=== PATIENT | female | born 1965 | race Caucasian/White ===

== ENCOUNTER 2020-06-18 08:24 | Outpatient (REF) | payer OTHER, SELFPAY ==
[2020-06-18 08:48] LABS: COVID-19 Test Negative (Negative)
== END 2020-06-18 08:25 | disposition home or self-care (01) ==
LOC: HO.EMPCOV 08:24
PROVIDERS: Visit Provider Internal Medicine
DX: Z20.828 Contact with and (suspected) exposure to other viral communicable diseases (principal)
CPT/HCPCS: 87635; C9803

== ENCOUNTER 2021-07-24 11:10 | Outpatient (REF) | payer SELFPAY ==
[2021-07-24 12:53] LABS: Influenza A PCR NEGATIVE (Negative); Influenza B PCR NEGATIVE (Negative); Resp Syncy Virus RNA Qual PCR NEGATIVE (Negative); SARS COV2 PCR INHOUSE NEGATIVE (Negative)
== END 2021-07-24 11:11 | disposition home or self-care (01) ==
LOC: HO.LNP 11:10
PROVIDERS: Visit Provider Physician Assistant
DX: Z20.822 Contact with and (suspected) exposure to COVID-19 (principal)
CPT/HCPCS: 0241U

== ENCOUNTER → 2023-01-12 14:59 | Outpatient (BNVA) | payer OTHER, SELFPAY | PROVIDERS: Visit Provider Orthopaedic Surgery | DX: M23.91 Unspecified internal derangement of right knee (principal) | CPT/HCPCS: 99212 ==

== ENCOUNTER 2023-01-31 09:00 | Outpatient (REF) | payer OTHER, SELFPAY ==
--- NOTE | ~2023-01-31 | MR_ITS ---
EXAMINATION: MR KNEE WITHOUT CONTRAST, RIGHT CLINICAL INFORMATION: Right knee pain. COMPARISON: None available. TECHNIQUE: MRI of the knee without contrast was performed using routine sequences on a high-field scanner. FINDINGS: MENISCI: Medial Meniscus: Intact Lateral Meniscus: Small ill-defined inner margin tear of the meniscal body. LIGAMENTS: Cruciate: Intact Collateral: Intact. Edema extending along the MCL is likely related to medial compartment pathology. EXTENSOR MECHANISM: Intact ARTICULAR CARTILAGE/BONE: Patellofemoral Compartment: Mild cartilage thinning and surface irregularity of the central patella and medial facet, as well as the medial trochlea inferiorly. Medial Compartment: Mild cartilage thinning and surface irregularity throughout the weightbearing aspect. There is peripheral subchondral marrow edema and linear low T1 signal of the tibia medially which may be degenerative, post traumatic, or less likely a small insufficiency fracture. Lateral Compartment: Partial-thickness cartilage loss and surface irregularity of the weightbearing femoral condyle and minimal surface irregularity of the posterior tibia. JOINT FLUID AND BURSAE: There is a moderate joint effusion. MR/MR knee RT wo con IMPRESSION: Small ill-defined inner margin tear of the lateral meniscus body. Mild tricompartmental osteoarthritis with a moderate joint effusion. There is subchondral marrow edema and focal subchondral low T1 signal of the peripheral medial tibia which may be degenerative, post traumatic, or less likely a small insufficiency fracture.
== END 2023-01-31 09:01 | disposition home or self-care (01) ==
LOC: HO.MRI 09:00
PROVIDERS: Visit Provider Orthopaedic Surgery
DX: M23.91 Unspecified internal derangement of right knee (principal)
CPT/HCPCS: 73721

== ENCOUNTER 2023-05-28 12:12 | Outpatient (AMB) | payer OTHER, SELFPAY ==
[2023-05-28 12:16] VITALS: BP 120/70; PULSE 99; TEMP 36.6; O2SAT 99; BMI 34.2
--- NOTE | 2023-05-28 12:16 | MHC.OFFWIV ---
Intake Vital Signs 05/28/23 12:16 Height 5 ft 6 in Weight 96.162 kg BMI 34.2 BP 120/70 Blood Pressure Location Lt brachial Position Sitting Pulse 99 Pulse Source Pulse Oximeter Temp 97.8 F Temp Source Temporal Artery Scan Pulse Oximetry (%) 99 Intake Visit Reasons: EP, body aches, loss of voice [phone] Intake Note: pt is here for c/p body aches and loss of voice Patient Tobacco Use Status: Never used Tobacco Allergies latex Allergy (Verified 05/28/23 12:16) Hives Do you need a note to return to daycare/school/sports/work: No HPI HPI Comments History of Present Illness Details 1240 57 year old female hx of hereditary spherocytosis s/p splenectomy presents w/ fatigue, malaise, myalgias, changes in voice, sinus congestion, chills, dry cough X 3 days worsening. Patient reports her son was sick w/ similar symptoms. Patient tells me she feels like she is coughing due to post nasal drip/discharge. Reprts a hoarse voice. Taking ibuprofen and tylenol as needed. Has a trip planned to [facility] on Thursday and wanted to be evaluated. No CP, SOB, nausea, vomiting, vision changes, abd pain. PE patient w/ hoarse voice. No signs of acute distress. VSS Likely viral ilness vs sinusists vs bronchitis. Will rule out flu/covid/rsv. No signs of sepsis at this time. Breath sounds clear unlikely pna or acute respiratory distress. Plan- viral test, Augmentin, prednisone. Educated patient on diagnosis and treatment plan, answered all question, patient verbalizes understanding. At this time patient will be discharged home, advised to return with new or worsening symptoms. Educated on worrisome signs and symptoms and when to return. At this time I feel comfortable discharge home. [facility] Medical History Internal derangement of right knee Social History Patient Tobacco Use Status: Never used Tobacco Review of Systems Const Details: Constitutional : No Weight loss, No Fever, + Chills, + Fatigue, + Malaise ENT/Mouth : No sore throat, No Rhinorrhea, + congestion , + loss of voice Eyes: No Eye Pain, No Swelling, No Redness Cardiovascular : No Chest Pain, No SOB, No Dyspnea on Exertion, No Orthopnea, No Edema, No Palpitations Respiratory : + Cough, No Sputum, No Wheezing Gastrointestinal : No Nausea, No Vomiting, No Diarrhea, No Constipation, No abdominal Pain, No Hematochezia, No Melena Genitourinary : No Dysuria, No Urinary Frequency, No Hematuria, Musculoskeletal : No joint pain, No Myalgias, No Joint Swelling Skin : No Skin Lesions, No rash Neuro : No Weakness, No Numbness, No Dizziness, No Headache Psych : No Anxiety/Panic, No Depression Heme/Lymph: No Bruising, No Bleeding,No Lymphadenopathy Endocrine : No Polyuria, No Polydipsia All other systems reviewed and are negative All systems reviewed & are unremarkable except as noted in HPI and below Physical Exam Vital Signs: Last Vital Signs Temp 97.8 F 05/28/23 12:16 Pulse 99 05/28/23 12:16 BP 120/70 05/28/23 12:16 Pulse Ox 99 05/28/23 12:16 BMI result Body Mass Index 34.2 vss Appearance: Alert.? Oriented X3.? No acute distress.?+ hoarse voice Head: Normocephalic, atraumatic, no step-offs or deformities + slight discomfort w/ palpation of facial sinuses and discomfort to face w/ forward bending Eyes: Pupils equal, round and reactive to light.? Neck: Normal inspection.? Neck supple.? CVS: Normal heart rate and rhythm.? Pulses normal.? Respiratory: No respiratory distress.? Breath sounds normal.? Abdomen: Soft and nontender.? Skin: Skin warm and dry.? Normal skin color.? Normal skin turgor.? Extremities: No lower extremity edema.? No calf ttp. 5/5 strength to bilateral upper and lower extremities Back: No midline tenderness, no C-spine tenderness, full range of motion, no CVA tenderness bilaterally Neuro: Oriented X 3.? No motor deficit.? No sensory deficit. CN 2-12 intact Assessment & Plan Assessment & Plan (1) Viral illness: Code(s): B34.9 - Viral infection, unspecified (2) Nasal congestion: Code(s): R09.81 - Nasal congestion Plan Take your medications as prescribed. If you were prescribed antibiotics today, it is important that you take your medication to their entirety, do not skip any doses, do not finish them early. Follow-up with your primary care provider this week. Return to the emergency department with new or worsening symptoms. Such as fevers, chills, chest pain, shortness of breath, nausea, vomiting, dizziness, headache, vision changes, lethargy In case of emergency call 911 Orders: Orders BinaxNOW Covid-19 Ag Today B34.9 - Viral infection, unspecified SARS-CoV2/FLU/RSV Today B34.9 - Viral infection, unspecified Medications: New prednisone 20 mg PO DAILY 5 days 5 tabs 0RF amoxicillin-pot clavulanate 875-125 mg 1 tab PO BID 10 days 20 tabs 0RF Coding Level of Care Code Est Pt Level 3 (52458) Diagnoses Viral illness B34.9 Nasal congestion R09.81
== END 2023-05-28 15:21 | disposition home or self-care (01) ==
PROVIDERS: Visit Provider Physician Assistant
DX: B34.9 Viral infection, unspecified (principal); R09.81 Nasal congestion
CPT/HCPCS: 99213

== ENCOUNTER 2023-05-28 12:32 | Outpatient (REF) | payer OTHER, SELFPAY ==
[2023-05-28 13:34] LABS: Binax Internal Control QC Valid; Binax Now Covid-19 Ag Negative (Negative); Binax Performed by: PAULP
[2023-05-28 17:13] LABS: Influenza A PCR NEGATIVE (Negative); Influenza B PCR NEGATIVE (Negative); Resp Syncy Virus RNA Qual PCR NEGATIVE (Negative); SARS COV2 PCR INHOUSE NEGATIVE (Negative)
== END 2023-05-28 12:33 | disposition home or self-care (01) ==
LOC: HO.HMGCLDS 12:32
PROVIDERS: Visit Provider Physician Assistant
DX: Z11.52 Encounter for screening for COVID-19 (principal); Z20.822 Contact with and (suspected) exposure to COVID-19; B34.9 Viral infection, unspecified
CPT/HCPCS: 0241U; 87811

== ENCOUNTER 2023-06-15 14:27 | Outpatient (AMB) | payer OTHER, SELFPAY ==
[2023-06-15 15:04] VITALS: BP 140/80; PULSE 99; TEMP 36.9; O2SAT 98; BMI 33.7
--- NOTE | 2023-06-15 15:04 | MHC.OFFWIV ---
Intake Vital Signs 06/15/23 15:04 Height 5 ft 6 in Weight 209 lb BMI 33.7 BP 140/80 H Blood Pressure Location Lt brachial Position Sitting Pulse 99 Pulse Source Pulse Oximeter Temp 98.5 F Temp Source Temporal Artery Scan Pulse Oximetry (%) 98 Oxygen Delivery Method Room Air Intake Visit Reasons: EP facial pain congestion taste off [phone] Intake Note: pt is here for c.o congestion, facial pain, no taste, just got over laryngitis Patient Tobacco Use Status: Never used Tobacco Allergies latex Allergy (Verified 06/21/23 14:48) Hives Medication List - Last Reconciled 06/21/23 by Bud Jeffery MD azelastine intranasal azithromycin take 500 mg today (day 1), then 250 mg for 4 days (days 2-5) PO fluticasone propionate 50 mcg/actuation 1 spray intranasal BID nirmatrelvir-ritonavir 300 mg (150 mg x 2)-100 mg (Paxlovid) take TWO 150 mg tablets of nirmatrelvir with ONE 100 mg tablet of ritonavir twice daily for 5 days PO prednisone 60 mg (3 x 20 mg) PO DAILY Do you need a note to return to daycare/school/sports/work: Yes HPI EP facial pain congestion taste off [phone] HPI Details 57 yr old female presents to the office for a sick visit. She is reporting symptoms of sinus congestion, postnasal drip and headache for the past 2 weeks. 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 [facility] Medical History Internal derangement of right knee Patient Tobacco Use Status: Never used Tobacco Physical Exam Vital Signs: Last Vital Signs Temp 98.5 F 06/15/23 15:04 Pulse 99 06/15/23 15:04 BP 140/80 H 06/15/23 15:04 Pulse Ox 98 06/15/23 15:04 Oxygen Delivery Method Room Air 06/15/23 15:04 BMI result Body Mass Index 33.7 Const General: cooperative and healthy appearing Nutritional Appearance: well nourished Orientation/consciousness: patient oriented x3 Limitations: no limitations HEENT Head: Yes normal to inspection Eyes General: appearance normal, both eyes and all related structures Neck Neck: Yes normal visual inspection Chest Chest palpation & inspection: normal palpation of entire chest wall Resp Effort & Inspection: normal respiratory effort Neuro General: patient oriented x3 Assessment & Plan Assessment & Plan (1) Upper respiratory tract infection: Code(s): J06.9 - Acute upper respiratory infection, unspecified Plan: Antibiotics called in. Increase fluid intake. COVID testing done. If symptoms do not improve to follow-up here in Orders: Orders SARS-CoV2/FLU/RSV 06/16/23 R09.89 - Other specified symptoms and signs involving the circulatory and respiratory systems Medications: New prednisone 60 mg (3 x 20 mg) PO DAILY 9 tabs 0RF azithromycin take 500 mg today (day 1), then 250 mg for 4 days (days 2-5) PO 6 tabs 0RF Coding Level of Care Code Est Pt Level 3 (81273) Diagnoses Upper respiratory tract infection J06.9
== END 2023-06-16 11:25 | disposition home or self-care (01) ==
PROVIDERS: Visit Provider Internal Medicine
DX: J06.9 Acute upper respiratory infection, unspecified (principal)
CPT/HCPCS: 99213

== ENCOUNTER 2023-06-15 16:05 | Outpatient (REF) | payer OTHER, SELFPAY ==
[2023-06-16 13:08] LABS: Influenza A PCR NEGATIVE (Negative); Influenza B PCR NEGATIVE (Negative); Resp Syncy Virus RNA Qual PCR NEGATIVE (Negative); SARS COV2 PCR INHOUSE POSITIVE (Negative)
== END 2023-06-15 16:06 | disposition home or self-care (01) ==
LOC: HO.HMGCLNP 16:05
PROVIDERS: Visit Provider Internal Medicine
DX: R09.89 Other specified symptoms and signs involving the circulatory and respiratory systems (principal); Z11.52 Encounter for screening for COVID-19
CPT/HCPCS: 0241U

== ENCOUNTER → 2023-09-28 15:44 | Outpatient (BNVA) | payer SELFPAY | DX: Z77.21 Contact with and (suspected) exposure to potentially hazardous body fluids (principal) | CPT/HCPCS: 84450; 84460; 85027; 86803; 87389; 99211 ==

== ENCOUNTER 2023-10-20 08:42 | Outpatient (REF) | payer SELFPAY ==
--- NOTE | ~2023-10-20 | XR_ITS ---
EXAMINATION: XR KNEE, RIGHT CLINICAL INFORMATION: Pain in unspecified knee. COMPARISON: January 31, 2023. TECHNIQUE: AP standing view of bilateral knees as well as lateral and sunrise views of the right knee. FINDINGS: AP STANDING VIEW OF THE LEFT KNEE: Postsurgical changes left knee with transverse screw distal femur. Moderate narrowing of the medial compartment as well as medial and lateral marginal osteophytes. RIGHT KNEE: Moderate joint effusion. Moderate narrowing of the medial compartment with small medial marginal osteophytes. XR/XR knee RT 3V IMPRESSION: Moderate degenerative changes bilateral knees.
== END 2023-10-20 08:43 | disposition home or self-care (01) ==
LOC: HO.HOSX 08:42
PROVIDERS: Visit Provider Physician Assistant
DX: M23.91 Unspecified internal derangement of right knee (principal)
CPT/HCPCS: 73562; 99212

== ENCOUNTER 2023-10-20 09:14 | Outpatient (AMB) | payer OTHER, SELFPAY ==
--- NOTE | 2023-10-20 09:17 | MHC.OFFVIS ---
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 Watson reports pain with getting up from a seated position and taking the first few steps after being seated. Pain is reported along the medial aspect of the knee. No prior injury. Hx of ACL reconstruction on the left. [facility] Medical History Internal derangement of right knee Social History Patient Tobacco Use Status: Never used Tobacco Physical Exam Const General: cooperative, healthy appearing and no acute distress Resp Effort & Inspection: normal respiratory effort and able to speak in complete sentences Cardio Rate: regular rate Peripheral pulses: Peripheral pulses 2+ throughout GI Palpation (GI): Soft to palpation Skin Lesions: no lesions Rashes: no rashes Extrem Other: Right knee normal to inspection. Full ROM. Pain at the extremes of flexion and extension. No tenderness to the medial or lateral joint lines. Negative Steinmen's. NVI. Assessment & Plan Assessment & Plan (1) Internal derangement of right knee: Code(s): M23.91 - Unspecified internal derangement of right knee Plan: X-rays obtained in the office today are negative for any acute fracture or dislocation. An MRI that was obtained on 01/31/23 was available for my review today and revealed subchondral edema along the medial tibia. Recommendations are as follows, activity modification as needed. We discussed the role of cortisone injections. She will hold off on this at this time. Followup prn, sooner if needed. Coding Level of Care Code Est Pt Level 3 (95388) Diagnoses Internal derangement of right knee M23.91
== END 2023-10-20 11:28 | disposition home or self-care (01) ==
LOC: HO.HOS 09:14
PROVIDERS: Visit Provider Physician Assistant
DX: M23.91 Unspecified internal derangement of right knee (principal)
CPT/HCPCS: 99213

== ENCOUNTER → 2023-11-18 14:51 | Outpatient (BNVA) | payer SELFPAY | PROVIDERS: Visit Provider Orthopaedic Surgery ==

== ENCOUNTER 2023-11-26 16:50 | Outpatient (REF) | payer OTHER, SELFPAY ==
--- NOTE | ~2023-11-26 | MR_ITS ---
EXAMINATION: MR KNEE WITHOUT CONTRAST, RIGHT CLINICAL INFORMATION: Medial right knee pain. Swelling. Crepitus. COMPARISON: Right knee radiographs dated 10/20/2023 and MRI dated 01/31/2023. TECHNIQUE: MRI of the knee without contrast was performed using routine sequences on a high-field scanner. FINDINGS: MENISCI: Medial Meniscus: Oblique inner margin radial tear of the posterior horn (axial image 12/20), new when compared to the prior examination. Mild degenerative intrasubstance signal within the meniscal body with adjacent soft tissue edema. Lateral Meniscus: Nondisplaced oblique inner margin tear of the meniscal body with degenerative signal in the anterior horn, slightly increased in prominence when compared to the prior examination. LIGAMENTS: Cruciate: Intact Collateral: Edema adjacent to the medial collateral ligament, consistent with acute grade 1 sprain/partial tear. Intact fibular collateral ligament. EXTENSOR MECHANISM: Intact ARTICULAR CARTILAGE/BONE: Patellofemoral Compartment: Medial trochlea articular cartilage signal heterogeneity with fissuring and underlying subchondral cystic change. Tiny marginal osteophytes. Findings are slightly more prominent when compared to the prior examination. Medial Compartment: Articular cartilage thinning and signal heterogeneity with small marginal osteophytes, slightly progressed. Resolution of the previously seen subchondral fracture. Lateral Compartment: Mild articular cartilage signal heterogeneity with small marginal osteophytes, slightly progressed. JOINT FLUID AND BURSAE: Small joint effusion. MR/MR knee RT wo con IMPRESSION: 1. Oblique inner margin radial tear of the medial meniscus posterior horn, new when compared to the prior examination. Degenerative intrasubstance signal within the meniscal body with adjacent soft tissue edema. 2. Nondisplaced oblique inner margin tear of the lateral meniscal body with degenerative signal in the anterior horn, slightly increased in prominence when compared to the prior examination. 3. Acute grade 1 sprain/partial tear of the medial collateral ligament. 4. Mild tricompartmental osteoarthritis, slightly progressed. Small joint effusion.
== END 2023-11-26 16:51 | disposition home or self-care (01) ==
LOC: HO.MRI 16:50
PROVIDERS: PCP Internal Medicine; Visit Provider Orthopaedic Surgery
DX: M23.91 Unspecified internal derangement of right knee (principal)
CPT/HCPCS: 73721

== ENCOUNTER 2023-12-22 08:51 | Outpatient (REF) | payer OTHER, SELFPAY ==
--- NOTE | ~2023-12-22 | XR_ITS ---
EXAMINATION: XR FOOT, LEFT CLINICAL INFORMATION: Pain in left foot. COMPARISON: None available. TECHNIQUE: AP, lateral, and oblique views of the left foot. FINDINGS: Radiopaque marker placed by technologist to indicate the area of concern as indicated by the patient along the anterior aspect of the distal tibia on the lateral view and adjacent to the base of the fifth metatarsal laterally on the oblique and AP views. Small dorsal and plantar calcaneal spurs. Moderate degenerative changes at the dorsal aspect of the midfoot. Moderate degenerative changes at the first metatarsophalangeal joint with lateral hypertrophic change and joint space narrowing. Moderate degenerative changes at the first tarsometatarsal joint. There is subtle lucency with cortical disruption and angulation at the fifth metatarsal head characteristic of impacted, mildly displaced fracture. XR/XR foot LT min 3V IMPRESSION: 1. Impacted, mildly displaced fracture of the fifth metatarsal head. 2. Moderate degenerative changes. This study was presented Friday, January 05, 2024 for interpretation. PSA staff will provide results to referring provider at this time.
== END 2023-12-22 08:52 | disposition home or self-care (01) ==
LOC: HO.HOSX 08:51
PROVIDERS: Visit Provider Physician Assistant
DX: M79.672 Pain in left foot (principal)
CPT/HCPCS: 73630

== ENCOUNTER 2023-12-22 10:41 | Outpatient (REF) | payer OTHER, SELFPAY | END 2023-12-22 10:42 | disposition home or self-care (01) | LOC: HO.HOSX 10:41 | PROVIDERS: Visit Provider Physician Assistant | DX: Z13.89 Encounter for screening for other disorder (principal) ==

== ENCOUNTER → 2024-04-25 15:40 | Outpatient (BNVA) | payer SELFPAY | PROVIDERS: PCP Internal Medicine | DX: Z77.21 Contact with and (suspected) exposure to potentially hazardous body fluids (principal) | CPT/HCPCS: 84450; 84460; 86803; 87389; 99211 ==

== ENCOUNTER 2024-07-01 11:51 | Day surgery (SDC) | payer OTHER, SELFPAY ==
[2024-07-01] VITALS (8 sets, daily range): BP systolic 105–130; BP diastolic 56–94; PULSE 80–103; RESP 16–18; TEMP 36.1–37.2; O2SAT 95–99; BMI 34.0
--- NOTE | 2024-07-01 12:18 | HO.ANESPROP2 ---
[facility] Active Problems Active Problems: All Active Problems Locking of right knee (Acute) Internal derangement of right knee (Acute) Past Medical History Medical History (Updated 07/01/24 @ 12:12 by Carol Ann Alfredo RN) Hereditary spherocytosis Internal derangement of right knee Family History Family history of problems with anesthesia: No Surgical History Surgical History (Updated 07/01/24 @ 12:11 by Carol Ann Alfredo RN) H/O bilateral oophorectomy History of hysterectomy H/O section Hx of reconstruction of anterior cruciate ligament tear H/O splenectomy Hx of cholecystectomy H/O neck surgery History of Problems with Anesthesia: No Social History Social History Are you a primary manager care to a significant other at home: No Do you presently have visiting nurse or other home services: No Patient Tobacco Use Status: Never used Tobacco Use of substances other than those prescribed or required for medical reasons: No Have you been hit, kicked, punched, or otherwise hurt by someone within the past year? If so, by whom?: No Are you DNR?: No Advance Directives: No Advance Directives Information Provided: No Advance Directives on File: No Recently lost weight without trying: No How much weight loss: Not applicable Eating poorly because of decreased appetite: No Nutrition screen score: 0 Nutrition Risks: No Nutritional Risk Patient : No : No Poor oral hygiene: Yes (small chip front tooth) Meds Allergies Allergy/AdvReac Type Severity Reaction Status Date / Time latex Allergy Hives Verified 07/01/24 11:56 Home Medications ?Medication ?Instructions ?Recorded ?Confirmed ?Last Taken ?Type azelastine 137 mcg (0.1 %) nasal intranasal 05/28/23 06/21/23 Unknown History spray fluticasone propionate 50 1 spray intranasal BID 05/28/23 06/21/23 Unknown History mcg/actuation nasal spray,suspension Exam Height,Weight and Vital Signs: Height 5 ft 7 in Weight 98.43 kg Last Vital Signs Temp 99.0 F 07/01/24 12:17 Pulse 103 H 07/01/24 12:17 Resp 16 07/01/24 12:17 BP 130/94 H 07/01/24 12:17 Pulse Ox 95 07/01/24 12:17 O2 Del Method Room Air 07/01/24 12:17 Airway Mallampati Class: II (missing one bottom left) TM Dist: >3cm Neck ROM: Full Heart: rrr Lungs: cta Assessment and Plan Assessment Anesthesia Assessment: Anesthesia Plan Discussed and Chart Reviewed Final Anesthetic Review Family History of Problems with Anesthesia: No History of Problems with Anesthesia: No NPO: Yes ASA Class: II Final Preanesthetic Review: No Changes in Pt Med Stat, Meds/Allgs Chart Reviewed and Consent Obtained/Reviewed Patient Risk: Low Procedure Risk: Low Anesthetic Plan Anesthetic Plan: GA Disposition: Standard PACU
--- NOTE | 2024-07-01 13:12 | MHC.SHP ---
Pre-Procedural Eval Section A - 24 Hr Update-Section A only Date of Service: 07/01/24 The patient is an INPATIENT: No Changes since office visit: No Cold of Flu in the past 2 weeks, No New Medical Problems, No Changes in Medication and No Patient answered all questions The patient has been examined within 24 hours of the surgical procedure. The History & Physical has been completed within 30 days and I have reviewed it.: Yes Section B - Complete if H&P > 30 days Chief Complaint: Complex tear of medial meniscus, current injury, r Allergies: Allergies Allergy/AdvReac Type Severity Reaction Status Date / Time latex Allergy Hives Verified 07/01/24 11:56 Plan I have reviewed the history and physical and performed a pertinent physical examination on my patient. No changes have occurred unless specified. Time Spent With Patient Time: Total time managing care of this patient today ____ minutes.
[2024-07-01] MEDS: oxyCODONE HCl Immed Release 5 MG TABLET PO (14:32)
[2024-07-01] MEDS: fentaNYL citrate/PF 100 MCG/2 ML VIAL 50 MCG IVPUSH (14:35)
--- NOTE | 2024-07-01 14:56 | PM.OP ---
Brief Operative Note Date of Service: 07/01/24 Pre-op diagnosis: Right knee MMT Post-op diagnosis: other (1) SAME 2) OA) Procedure: Right knee with partial medial meniscectomy Implants: NONE Surgeon: Jayden Hurst MD Anesthesia: GLMA and local Was an [employer] Et[employer] Developer used for this Procedure?: No Estimated blood loss (mL): 5 Tourniquet time (min): 34 IV fluids (mL): 500 Pathology: none sent Condition: stable Disposition: PACU
--- NOTE | 2024-07-01 15:19 | P.OP_ITS ---
Operative Note Operative Note Date of Service: 07/01/24 Narrative: Date of Service: 07/01/24 Pre-op diagnosis: Right knee MMT Post-op diagnosis: other (1) SAME 2) OA) Procedure: Right knee with partial medial meniscectomy Implants: NONE Surgeon: Jayden Hurst MD Anesthesia: GLMA and local Was an Color Specialist used for this Procedure?: No Estimated blood loss (mL): 5 Tourniquet time (min): 34 IV fluids (mL): 500 Pathology: none sent Condition: stable Disposition: PACU Procedure in detail: Patient was brought to the operating room placed supine on the arthroscopic table and prepped and draped in standard sterile fashion. A time-out was called to identify proper site proper procedure proper surgeon and IV antibiotics per weight were administered. I began by exsanguinating the limb and insufflating tourniquet to 300 mm Hg. I injected approximately 5 mL 0.25% Marcaine into the skin over the anteromedial portal. I then made a standard anterolateral stab incision with a 15 blade. A blunt trocar was inserted into the patellofemoral joint and the knee was insufflated with saline. A 30 degree arthroscope was placed. There was grade 1 fibrillations of the patella . There were grade to changes of the proximal aspect of the trochlea extending distally the entirety of the central portion of the trochlea. The suprapatellar pouch and the gutters were clean. I descended into the medial compartment where I made my medial portal under direct visualization. I placed a probe and examined the medial compartment. There was a radial tear at the junction of the body and posterior horn. This had several complex flaps. The posterior root and body were otherwise stable to probing. There was an area of cartilage damage that just medial to the weight-bearing portion of the medial compartment. This was notable for grade 2/3 changes and was in close proximity to the meniscal tear. There were grade 1 changes of some of the more lateral portions of the medial femoral condyle and grade 1 changes of the medial tibial plateau. There was a 5mmx 3mm area of G3 cartilage damage over the anterior aspect of the medial femoral condyle just medial to the trochlea. I used a blunt shaver to debride the loose chondral flaps on the trochale, patellat and medial compartment. I then used a combination of the shaver and a small biter to remove the unstable portions of the meniscus tear. There was a flap that had flipped superiorly that was also debrided. This resulted in approximately 20% removal of the meniscus. The inferior meniscus was attached in its entirety to the capsule maintaining overall integrity of the medial meniscus. Once I was satisfied with the debridement, the ACL was examined and found to be intact and the lateral compartment also was without the need for intervention. There was grade 1 changes of the lateral tibial plateau. I then removed all instrumentation and closed the portals with skin glue. 25 mL of 2% Marcaine with epinephrine was injected into the joint and the surrounding soft tissues. Patient was then placed in sterile dressing extubated brought recovery room stable condition. There were no known complications.
--- OUTSIDE RECORDS SUMMARY | 2024-07-06 08:05 | XMS_ITS | Data Portability ---
Author Organization [place] [facility], -[facility] Address [address] [place] [address] Assessment Encounter Date Assessment Date Assessment LastModified by Organization Details LastModified Time 06/19/2022 06/19/2022 Assessment: left 4th MC fracture Plan: The radiographic and clinical exam findings were reviewed and discussed with the patient and family. She does have a minimally displaced left fourth metacarpal fracture. We discussed treatment options. She would like to go back to [place] for further treatment. She was offered immobilization in an ulnar gutter splint but after thorough discussion she elected to proceed with immobilization in a cock-up wrist splint along with the salbador taping of the third and fourth digits. She was provided Pomona 5? 325 mg #5 for pain control. She can continue to take ibuprofen with this as well. She should continue to ice and elevate the affected area. Patient verbalizes understanding and will follow up as needed. [email or web address] Not available 06/21/2022 08:06:27 Plan of Treatment Reminders Order Date Submit Date Provider Last Modified By Organization Details Last Modified Time Details Appointments None recorded . Lab None recorded . Referral None recorded . Procedures None recorded . Surgeries None recorded . Imaging XR, hand, 3 or more view 022 06/19/20 22 mosika [facility], [address], [facility] [address], [place], [address], 08:54:57 Medication Orders Pomona 5 mg-325 mg tablet 022 06/19/20 22 [id number], [address], [place], [place], [id number], 15:47:56 Patient TargetsNo targets recorded. Patient Instructions Encounter Date Encounter Id Patient Instructions Last Modified By Organization Details Last Modified Time 06/19/2022 [id number] application of salbador tape* [email or web address] Not available 06/27/2022 18:29:14 Reason for Referral None Reported. Results Created Date Observation Date Name Description Value Unit Range Abnormal Flag Note LastModifiedBy Organization Detail LastModifiedTime 06/19/2006/19/2022 XR, hand, 3 or more view No observ ation record ed. [place] [address] [facility] [address] [place], [place] [address], [place], [address], 06/21/2022 09:00:14 Result Notes None recorded. Procedures Surgical History None recorded. Imaging Results Imaging Date Name Status LastModified by Organiz ation Details LastModified Time 06/19/2022 XR, hand, 3 or more view completed [place] [address] [facility] [address] [facility] [address], [place], [address], 06/21/2022 09:00:14 Procedure Notes None recorded. Medical Equipment None Reported. Medications Name Sig Start Date Stop Date Status Note LastModified by Organization Details LastModified Time Pomona 5 mg-325 mg tablet Take 1 tablet every 6 hours by oral route. 2021 active Not Available Not Available Not Avai lable amoxicillin 875 mg-potassium clavulanate 125 mg tablet TAKE 1 TABLET BY MOUTH EVERY 12 HOURS FOR 10 DAYS active Not Available Not Available No t Available Paxlovid 300 mg (150 mg x 2)-100 mg tablets in a dose pack DIRECTED ORALLY 5 DAYS active Not Available Not Available No t Available Vitals None Recorded Social History None recorded. Functional Status None recorded. Mental Status None recorded. Family History Nothing Reported. Medical History No medical history recorded. Gynecological HistoryNo gynecological history recorded. Obstetrics History GPAL:G 0 P 0 0 0 0 Past Encounters Encounter ID Performer Location Encounter Start Date Encounter Closed Date Diagnosis/Indication Diagnosis SNOMED-CT Code Diagnosis ICD10 Code [id number] Avelino Neidecker, DO [facility] [address] [place] [address] 06/19/2022 15:15:59 06/19/2022 16:12:55 Pain of left hand 0148908816 96165 M79.642 Fracture o f shaft of metacarpal bone 36800149 S62.329A Y99.8 Y93.89 Y92.89 Health Concerns Section Related Observation LastModified by Organization Detai ls LastModified Time None Recorded Concern Status LastModified by Organization Details LastModified Time None Recorded Advance Directives Directive None Recorded Payers Encounter Date Sequence Insurance Name Policy Number Policy Bautista Covered Member ID Bautista Member ID Guarantor Name 06/19/2022 1 [employer] [id number] [id number] Radha Watson [id number] Radha Watson Notes Date Note Type Note Provider Name and Address Organization Details Recorded Time 06/19/2022 text/html 56 year old fema russ presents for left hand pain after falling onto brick steps earlier today. She localizes her pain to the 4th MC. 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 [place] [address] [address], [place], [address], [facility] - [facility] 06/23/2022 08:17:49 OBGyn Episode No OBEpisode recorded.
== END 2024-07-01 15:56 | disposition home or self-care (01) ==
PROVIDERS: PCP Internal Medicine; Visit Provider Orthopaedic Surgery
PROC: (CPT 29870; principal; 2024-07-01 13:00)
DX: S83.231A Complex tear of medial meniscus, current injury, right knee, initial encounter (principal); X58.XXXA Exposure to other specified factors, initial encounter; Y93.9 Activity, unspecified; Y92.9 Unspecified place or not applicable; Y99.9 Unspecified external cause status; M23.91 Unspecified internal derangement of right knee; M17.11 Unilateral primary osteoarthritis, right knee; D58.0 Hereditary spherocytosis; Z79.899 Other long term (current) drug therapy; Z91.040 Latex allergy status; Z98.890 Other specified postprocedural states
CPT/HCPCS: 29881; J0131; J0171; J0690; J1100; J1885; J2003; J2250; J2405; J2704; J2795; J3010

== ENCOUNTER → 2024-07-01 11:51 | Outpatient (BNV) | payer OTHER, SELFPAY | PROVIDERS: PCP Internal Medicine; Visit Provider Orthopaedic Surgery | DX: S83.241A Other tear of medial meniscus, current injury, right knee, initial encounter (principal) | CPT/HCPCS: 29881 ==

== ENCOUNTER 2024-07-07 15:15 | Outpatient (AMB) | payer OTHER, SELFPAY ==
--- NOTE | 2024-06-22 15:40 | A.OFFVIS_ITS ---
Intake Visit Reasons: PO RT knee 07/01/24 NE Intake Note: Radha is a 58 year old female who presents today for a pre operative appointment for her right knee. She is booked for a Right Knee Partial Medial Menisectomy on 07/01/24 Allergies latex Allergy (Verified 06/21/23 14:48) Hives HPI HPI PO RT knee 07/01/24 NE: Details: This is a 58-year-old woman with right knee pain. She has a history of 2 MRIs showing progressive tearing of the medial meniscus on the right. She describes an inability to return to prior level of activity I he is skiing and hiking and painless daily activities. The pain localizes to the medial aspect of the right knee [facility] Medical History Internal derangement of right knee Social History Patient Tobacco Use Status: Never used Tobacco Physical Exam Extrem Other: Tenderness to palpation medial joint line and markedly positive medial Gricel's. Otherwise range of motion only slightly limited in terminal flexion. Stable to varus and valgus stress. Negative Alyson's. Results Reviewed Results Reviewed: I personally reviewed the MR images. 1. Oblique inner margin radial tear of the medial meniscus posterior horn, new when compared to the prior examination. Degenerative intrasubstance signal within the meniscal body with adjacent soft tissue edema. 2. Nondisplaced oblique inner margin tear of the lateral meniscal body with degenerative signal in the anterior horn, slightly increased in prominence when compared to the prior examination. 3. Acute grade 1 sprain/partial tear of the medial collateral ligament. 4. Mild tricompartmental osteoarthritis, slightly progressed. Small joint effusion. Assessment & Plan Assessment & Plan (1) Internal derangement of right knee: Code(s): M23.91 - Unspecified internal derangement of right knee Category: Medical Plan: This is a 58-year-old healthy woman with right knee medial meniscus tear. She has tried extensively to treat this with conservative management and but a repeat MRI shows progression of the tear and she is unable to engage in daily activities. I recommend knee arthroscopy. I informed her of the risks of incomplete symptom resolution as well as stiffness and pain. I think the primary risk is that there is mild arthritis which may be exacerbated by surgery. She expressed understanding and we will proceed forward accordingly. Coding Level of Care Code Est Pt Level 4 (91669) Diagnoses Internal derangement of right knee M23.91
--- NOTE | 2024-07-07 15:20 | MHC.OFFVIS ---
Intake Visit Reasons: PO RT knee 07/01/24 NE Intake Note: Radha is a 58 year old female who presents today for a post operative appointment s/p Right Knee 07/01/24. Patient reports that she has continued drainage of the medial incision, as well as continued pain and swelling. She is improving and explains that she was able to use the operative leg to step up stairs. Allergies latex Allergy (Verified 07/01/24 11:56) Hives HPI HPI PO RT knee 07/01/24 NE: Details: doing well. min drainage 0-110 PFSH Medical History (Updated 07/01/24 @ 12:12 by Carol Ann Alfredo, RN) Hereditary spherocytosis Internal derangement of right knee Surgical History (Updated 07/01/24 @ 12:11 by Carol Ann Alfredo RN) H/O bilateral oophorectomy History of hysterectomy H/O section Hx of reconstruction of anterior cruciate ligament tear H/O splenectomy Hx of cholecystectomy H/O neck surgery Social History Are you a primary career professional to a significant other at home: No Do you presently have visiting nurse or other home services: No Patient Tobacco Use Status: Never used Tobacco Assessment & Plan Assessment & Plan (1) Internal derangement of right knee: Code(s): M23.91 - Unspecified internal derangement of right knee Category: Medical Plan: Left knee degenerative meniscus s/p meniscectomy and OA. Continue gentle ROM and anti-inflammatories /ice Coding Level of Care Code Global (00570) Diagnoses Internal derangement of right knee M23.91
== END 2024-07-07 15:46 ==
LOC: HO.HOS 15:15
PROVIDERS: PCP Internal Medicine; Visit Provider Orthopaedic Surgery
DX: M23.91 Unspecified internal derangement of right knee (principal)
CPT/HCPCS: 99214

== ENCOUNTER 2025-06-23 15:03 | Outpatient (REF) | payer OTHER, SELFPAY ==
--- NOTE | ~2025-06-23 | CT_ITS ---
EXAMINATION: CT SINUSES WITH IV CONTRAST HISTORY: Chronic sinusitis TECHNIQUE: Serial 2 mm helically acquired images were obtained through the paranasal sinuses after the intravenous administration of 85 mL Omnipaque 350. Sagittal and coronal reformatted images were also obtained. This CT exam was performed with one or more of the following dose reduction techniques: automated exposure control, adjustment of the mA and/or kV according to patient size, use of iterative reconstruction technique. DLP: 94 mGy-cm COMPARISON: There are no prior studies available for comparison. FINDINGS: PARANASAL SINUSES: The bilateral frontal, maxillary, ethmoid, and sphenoid sinuses are well-aerated and clear. No mucosal thickening or air/fluid levels are identified. The ostiomeatal complexes are patent bilaterally. The mastoid air cells and middle ear cavities are well pneumatized bilaterally. BONES/JOINTS: There is moderate nasal septal deviation to the right. No acute fractures are identified. INCLUDED ORBITS AND BRAIN: Unremarkable. The olfactory grooves appear within normal limits bilaterally. OTHER COMMENTS AND FINDINGS: None. CT/CT sinus w IV con IMPRESSION: Moderate nasal septal deviation to the right. Otherwise unremarkable CT of the paranasal sinuses. Electronically signed by: Paddy Ham MD 06/23/2025 03:50 PM [facility]
--- OUTSIDE RECORDS SUMMARY | 2025-06-23 15:06 | XMS_ITS | Data Portability ---
Author Organization [place] [facility] Address [address] [place] [address] Assessment Encounter Date Assessment Date Assessment LastModified by Organization Details LastModified Time 06/19/2022 06/19/2022 Assessment: left 4th MC fracture Plan: The radiographic and clinical exam findings were reviewed and discussed with the patient and family. She does have a minimally displaced left fourth metacarpal fracture. We discussed treatment options. She would like to go back to [place] for further treatment. She was offered immobilization in an ulnar gutter splint but after thorough discussion she elected to proceed with immobilization in a cock-up wrist splint along with the salbador taping of the third and fourth digits. She was provided Moville 5 3 25 mg #5 for pain control. She can [...] hand, 3 or more view 022 06/19/20 mosika [facility] [place], [address], [facility] [address], [place], [address], 08:54:57 Medication Orders Moville 5 mg-325 mg tablet 022 06/19/20 22 [id number], [address], [place], [place], [phone], 15:47:56 Patient TargetsNo targets recorded. Patient Instructions Encounter Date Encounter Id Patient Instructions Last Modified By Organization Details Last Modified Time 06/19/2022 [id number] application of salbador tape* [email or web address] Not available 06/27/2022 18:29:14 Reason for Referral None Reported. Results Created Date Observation Date Name Description Value Unit Range Abnormal Flag Note LastModifiedBy Organization Detail LastModifiedTime 06/19/20 22 06/19/2022 XR, hand, 3 or more view No observ ation record ed. [email or web address] [facility] [address] [address], [place], [address], 06/21/2022 09:00:14 Result Notes None recorded. Medical Equipment None Reported. Medications Name Sig Start Date Stop Date Status Note LastModified by Organization Details LastModified Time Moville 5 mg-325 mg tablet Take 1 tablet [...] Diagnosis/Indication Diagnosis SNOMED-CT Code Diagnosis ICD10 Code Diagnosis IMO Codes Diagnosis Note [id number] Avelino Stanley, [facility] [address] [address] [address] 06/19/2022 15:15:59 06/19/2022 16:12:55 Pain of left hand [id number] 98500 M79.642 Fracture o f shaft of metacarpal bone 51322798 S62.329A Y99.8 Y93.89 Y92.89 Health Concerns Section Related Observation LastModified by Organization Detai ls LastModified Time None Recorded Concern Status LastModified by Organization Details LastModified Time None Recorded Advance Directives Directive None Recorded Payers Insurance Date Sequence Insurance Name Policy Number Policy Bautista Covered Member ID Bautista Member ID Guarantor Name 06/19/2022 1 [place] [employer] [facility] ([facility]) [id number] Radha Watson [id number] Radha Watson Notes Date Note Type Note Provider Name and Address Organization Details Recorded Time 06/19/2022 text/html 56 year old female presents for left hand pain after falling onto brick steps earlier today. She localizes her pain to the 4th MC. 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 [address] [address], [place], [address], [facility] 06/23/2022 08:17:49 OBGyn Episode No OBEpisode recorded.
--- OUTSIDE RECORDS SUMMARY | 2025-06-23 15:06 | XMS_ITS | Data Portability ---
Author Organization [place] - [facility], Allergy Address [address] [address] Care Team Providers Care Engineering Associate Name Role Phone OJSE TOLEDO Primary Care Provid er Assessment Encounter Date Assessment Date Assessment LastModified by Organization Details LastModified Time 05/17/2025 05/17/2025 Radha Watson is a 59-year-old female with persistent nasal congestion, postnasal drip, and difficulty breathing at night, likely due to inflammatory causes. The patient presents with a history of nasal congestion, postnasal drip, and a deviated septum. She reports worsening symptoms over the past three weeks, including difficulty breathing while lying down and sleep disruption. Examination revealed no polyps or physical blockage, but there was slightly puffy lymphoid tissue in the nasal pharynx, more prominent on the right side. The larynx appeared normal, and no growths or significant abnormalities were noted. The patient will be treated with doxycycline for two weeks for a presumed sinus infection. She is advised to use Flonase twice daily and Afrin decongestant spray for three nights only, as prolonged use can lead to dependency. She is also instructed to use a neti pot or saline rinse with distilled water and buffered saline packets to help alleviate her symptoms. A CT scan of the sinuses with contrast will be ordered to evaluate the sinuses and lymphoid tissue further if symptoms do not improve. The scan will be scheduled in [place] in approximately one month to allow time for the prescribed treatments to take effect. FOLLOW-UP: The patient will follow up after completing the prescribed treatments and the CT scan to reassess her symptoms and determine the next steps if necessary. Procedure Documentation: - Nasal examination with telescope and decongestant spray (Afrin and lidocaine) applied to the nasal passages. [email or web address] Not available 05/17/2025 16:43:10 Plan of Treatment Reminders Order Date Submit Date Provider Last Modified By Organization Details Last Modified Time Details Appointments None recorded. Lab None recorded. Referral None recorded. Procedures None recorded. Surgeries None recorded. Imaging CT, maxillofaci al, w/ contrast 2024 025 [email or web address] [facility] (Imaging), [address] [place] [address], [address], 12:14:09 Medication Orders doxycycline hyclate 100 mg tablet 2024 025 [facility] #[id number], [address] , [place], [address], 05:02:14 Patient TargetsNo targets recorded. Patient Instructions Encounter Date Encounter Id Patient Instructions Last Modified By Organization Details Last Modified Time 05/17/2025 [id number] - Use Flonase twice daily. - Use Afrin decongestant spray for three nights only. - Use a neti pot or saline rinse with distilled water and buffered saline packets. - Complete the prescribed course of doxycycline for two weeks. - Schedule and complete a CT scan of the sinuses with contrast in [place] in approximately one month. - Follow up after completing treatments and the CT scan. [email or web address] Not available 05/17/2025 16:43:10 Please note: Parts of this encounter note have been generated by AI based on audio conversation. Patient consent was required prior to utilizing this technology. Content review was required prior to finalizing the note. [email or web address] Not available 05/17/2025 16:43:10 Reason for Referral None Reported. Problems Name Problem SNOMED Code Status Onset Date Resolution Date Notes Provider Name and Address Organization Details Recorded Time Deviated nasal septum [id number] Active 2022 Deviated nasal septum; Note: Date Diagnosed : 08/01/2022 3:35 PM (J34.2) JESUS MANCINI, [address] [facility],[address] [address], [place], [address] , [place] [facility] [place] 16:25:41 Chronic rhinitis 56933186 Active 2022 Chronic rhinitis; Note: Date Diagnosed : 08/01/2022 3:35 PM (J31.0) Not Available [facility] [place] [facility] 4 02:28:32 Snoring 99735939 Active 2023 Snoring; Note: Date Diagnosed : 10/16/2023 2:02 PM (R06.83) Not Available [facility] [place] 4 02:28:15 Obesity 438264131 Active 2023 Other obesity; Note: Date Diagnosed : 10/16/2023 2:02 PM (E66.8) Not Available [facility] [place] 4 02:28:22 Chronic sinusitis 44798069 Active 2024 JESUS MANCINI MD [address] [facility],[place] [address], [place], [address] , [place] - [facility] 16:25:36 Allergic rhinitis 93636530 Active 2024 JESUS MANCINI MD [address] [facility],[place] [address], [place], [address] , [place] [facility] 16:25:48 Change in voice 639035394 Active 2024 JESUS MANCINI MD [address] [place] [address],[place] [address], [place], [address] , [place] - [facility] 16:26:02 Problem Notes None recorded. Procedures Surgical History Date Name Laterality Status Provider Name and Address Organization Details Recorded Time 05/17/20 Fiberoptic Laryngoscopy (Comprehensive) completed JESUS [place] MD [address] [facility],[place] [address], [place], [address], [facility] - [facility] 05/17/2025 16:40:16 hysterectomy completed Jeannette Piper [place] [facility] 05/17/2025 15:54:59 oophorectomy completed Jeannette Piper [place] - [facility] 05/17/2025 15:55:12 Imaging Results None recorded. Procedure Notes None recorded. Medical Equipment None Reported. Allergies Allergen ID Allergen Name Allergen Category Reaction Reaction Severity Criticality Documentation Date Start Date Code Code System Note Provider Name and Address Organization Details Recorded Time 00296 latex environme nt,medica tion other Not available Not available 12/08/2023 56649 91 RxNorm React ion: Unkno wn; Not Available [facility] 4 00:54:51 Medications Name Sig Start Date Stop Date Status Note LastModified by Organization Details LastModified Time azelastin e 137 mcg (0.1 %) nasal spray Paradise 2 spray into both nostrils twice a day as directed 2022 active Medicati on ID: [id number] D uration Value: 30 Brand Name: azelasti ne Send Method: E-Prescr ibed Sub s Allowed: subs OK Medic ationGen ericName : azelasti ne Not Available Not Available Not Available doxycycli ne hyclate 100 mg tablet Take 1 tablet twice a day by oral route for 14 days. 06/07 completed Not Available Not Available Not Available amoxicill in 875 mg-potass ium clavulana te 125 mg tablet TAKE 1 TABLET BY MOUTH TWICE A DAY FOR 7 DAYS 05/17 completed Not Available Not Available Not Available Flonase Allergy Relief 50 mcg/actua tion nasal spray,fabián pension Paradise 2 spray once a day 2022 active Medicati on ID: [id number] D uration Value: 30 Brand Name: Flonase Allergy Relief S end Method: E-Prescr ibed Sub s Allowed: subs OK Medic ationGen ericName : Flonase Allergy Relief Not Available Not Available Not Available Flonase Allergy Relief 05/17 completed Medicati on ID: [id number] B rand Name: Flonase Allergy Relief S end Method: E-Prescr ibed Sub s Allowed: subs OK Medic ationGen ericName : Flonase Allergy Relief Not Available Not Available Not Available Vitals None Recorded Social History None [...] ICD10 Code Diagnosis IMO Codes Diagnosis Note [id number] JESUS MANCINI MD [facility] [address] [address] 05/17/2025 15:38:11 05/18/2025 13:14:20 Chronic sinusitis 49199642 J32.8 14452 Deviated nasal septum 12 8116201 J34.2 722999 Allergic rhinitis 239125 04 J30.89 5369996 Use Flonase 2 spray each nostril BID and Afrin at night for 3 days Change in voice 22340200 5 R49.9 43350 Health Concerns Section Related Observation LastModified by Organization Detai ls LastModified Time None Recorded Concern Status LastModified by Organization Details LastModified Time None Recorded Advance Directives Directive None Recorded Payers Insurance Date Sequence Insurance Name Policy Number Policy Bautista Covered Member ID Bautista Member ID Guarantor Name 05/24/2025 1 [employer] [place] [id number] Radha Watson Md [id number] Radha Watson MD Notes Date Note Type Note Provider Name and Address Organization Details Recorded Time 05/17/2025 text/html ROS as noted in the HPI 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 She reports that over the past three weeks, she has experienced significant difficulty breathing while lying down, which has disrupted her sleep. She describes a sensation of suffocation upon falling asleep, particularly on the right side, and notes that she has been unable to sleep until 2 or 3 AM most nights. She has a history of nasal stuffiness, postnasal drip, and a deviated septum, which were previously evaluated during a visit on September 2023. At that time, she was advised to use saline rinses and Ponaris, and she intermittently used Flonase when her symptoms worsened. She reports persistent right-sided postnasal drip, which is particularly bothersome in the mornings, and she drinks coffee and fluids throughout the day to alleviate the symptoms. She has not been treated with antibiotics for sinus infections and denies feeling sick. She also notes that her nasal congestion worsens during illnesses and takes a long time to resolve. She has a history of ethmoid sinus disease noted on a scan performed in , which did not demonstrate any polyps. She has a known LATEX allergy. JESUS MA MD [address] [place] [address], [address], [facility] - [facility] 05/17/2025 16:46:39 OBGyn Episode No OBEpisode recorded.
--- OUTSIDE RECORDS SUMMARY | 2025-06-23 15:06 | XMS_ITS | Clinical Summary ---
Author Organization [facility] Address [address] [place], [place] [id number] Phone Care Team Providers Care A Class Lineman Name Role Phone NicolereneelucilaDrea dos santos DO Primary Car e Provider Allergies Active Allergy Reactions Criticality Noted Date Comments Latex Rash Low 03/22/2014 Red and swollen Red and swollen Medications ibuprofen (ADVIL,MOTRIN) 600 MG tablet ibuprofen 600 mg tabs Active Social History Tobacco Use Types Packs/Day Years Used Date Smoking Tobacco: Never Assessed Education Answer Date Recorded Are you interested in more education? Not on rachel e 11/22/2022 Are you concerned about learning? Not on file 11/22/2022 No 11/22/2022 No 11/22/2022 Digital Access Answer Date Recorded No 12/21/2022 No 12/21/2022 Reliable internet access at home? Not on file 12/21/2022 Device with a working camera? Not on file Comments Unknown Sex and Gender Information Value Date Recorded Sex Assigned at Not on file Legal Sex Female 1:54 PM EST Gender Identity Not on file Sexual Orientation Not on file Last Filed Vital Signs Vital Sign Reading Time Taken Comments Blood Pressure 152/95 06/24/2022 9:08 AM EST Pulse 80 06/24/2022 9:08 AM EST Temperature - - Respiratory Rate - - Oxygen Saturation - - Inhaled Oxygen Concentration - - Weight 91.9 kg (202 lb 9.6 oz) 06/24/2022 9:08 A M EST Height 168 cm (5' 6.14 ) 06/24/2022 9:08 AM EST Body Mass Index 32.56 06/24/2022 9:08 AM EST Plan of Treatment Health Maintenance Due Date Last Done Comments Adult Td,Tdap Booster 1965 LIPID PANEL 1965 DEPRESSION SCREENING 1977 SMOKING Hx and SMOKELESS TOBACCO SCREENING 1978 HEPATITIS C SCREENING 10/03/1983 HIV ONE-TIME SCREENING (18-65 YEARS) 10/03/1983 PAP SMEAR 1986 SCREENING FOR DIABETES 2000 MAMMOGRAM 2005 COLOGUARD 2010 COLONOSCOPY 2010 COLORECTAL CANCER SCREENING 2010 FIT TEST 2010 FOBT 2010 SIGMOIDOSCOPY 2010 VIRTUAL COLONOSCOPY 2010 ZOSTER VACCINES (1 of 2) 10/03/2015 PNEUMOCOCCAL VACCINES (50+ years) (2 of 2 - PCV20 or PCV21) 10/30/2020 10/31/2019 INFLUENZA VACCINE (#1) 2025 06/09/2022, 2020 COVID-19 VACCINE ( - season) 2025 02/09/2022, 05/19/2021, 08/05/2020, Additional history exists RSV VACCINE (1 - 1-dose 75+ series) 2040 MENINGOCOCCAL VACCINES (ACWY) Aged Out 03/08/2020, 12/24/2019, 03/22/2014 No longer eligible based on patient's age to complete this topic HEPATITIS A VACCINES Aged Out No long er eligible based on patient's age to complete this topic HIB VACCINES Aged Out No longer eligi ble based on patient's age to complete this topic MENINGOCOCCAL VACCINES (B) Aged Out N o longer eligible based on patient's age to complete this topic Medical Devices Not on file Insurance [employer] Member Subscriber Plan / Payer (Ef fective 2019-Present) Name:Radha Watson Relation to Subscriber:Self Name:Radha Watson Payer ID:[id number] (NAIC) Type:PPO Address: [place] [phone] [employer] Member Subscriber Plan / Payer (Ef fective 2019-Present) Name:Radha Watson Relation to Subscriber:Self Name:aRdha Watson Payer ID:[id number] (NAIC) Type:PPO Address: [place] [phone] [employer] Member Subscriber Plan / Payer (Ef fective 2019-Present) Name:Radha Watson Relation to Subscriber:Self Name:Radha Watson Payer ID:[id number] (NAIC) Type:PPO Address: [place] [phone] [employer] Care Teams A Class Lineman Relationship Specialty Start Date End Date Drea Cullen DO [address] [place] [id number] PCP - General Internal Medicine 06/23/22 Additional Source Comments The information contained in this document represents components of the legal health record. It is not the complete legal health record.[facility]
--- OUTSIDE RECORDS SUMMARY | 2025-06-23 15:06 | XMS_ITS | Continuity of Care Document ---
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 The scan will be scheduled in [place] in approximately one month to allow time for the prescribed treatments to take effect. FOLLOW-UP: The patient will follow up after completing the prescribed treatments and the CT scan to reassess her symptoms and determine the next steps if necessary. Procedure Documentation: - Nasal examination with telescope and decongestant spray (Afrin and lidocaine) applied to the nasal passages. [email or web address] Not available 05/17/2025 16:43:10 Plan of Treatment Reminders Order Date Submit Date Provider Last Modified By Organization Details Last Modified Time Details Appointments None recorded. Lab None recorded. Referral None recorded. Procedures None recorded. Surgeries None recorded. Imaging CT, maxillofaci al, w/ contrast 2024 025 [email or web address] [facility] (Imaging), [address] [place] [address], [address], 12:14:09 Medication Orders doxycycline hyclate 100 mg tablet 2024 025 [facility] #[id number], [address] , [place], [address], 05:02:14 Patient TargetsNo targets recorded. Patient Instructions Encounter Date Encounter Id Patient Instructions Last Modified By Organization Details Last Modified Time 05/17/2025 [id number] - Use Flonase twice daily. - Use Afrin decongestant spray for three nights only. - Use a neti pot or saline rinse with distilled water and buffered saline packets. - Complete the prescribed course of doxycycline for two weeks. - Schedule and complete a CT scan of the sinuses with contrast in [place] in approximately one month. - Follow up after completing treatments and the CT scan. [email or web address] Not available 05/17/2025 16:43:10 Please note: Parts of this encounter note have been generated by AI based on audio conversation. Patient consent was required prior to utilizing this technology. Content review was required prior to finalizing the note. [email or web address] Not available 05/17/2025 16:43:10 Reason for Referral None Reported. Problems Name Problem SNOMED Code Status Onset Date Resolution Date Notes Provider Name and Address Organization Details Recorded Time Deviated nasal septum 225094362 Active 2022 Deviated nasal septum; Note: Date Diagnosed : 08/01/2022 3:35 PM (J34.2) JESUS MANCINI MD [address] [place] [address], [place], [phone] , [place] - [facility] 16:25:41 Chronic rhinitis 41885312 Active 2022 Chronic rhinitis; Note: Date Diagnosed : 08/01/2022 3:35 PM (J31.0) Not Available [facility] 02:28:32 Snoring 87471944 Active 2023 Snoring; Note: Date Diagnosed : 10/16/2023 2:02 PM (R06.83) Not Available [facility] 4 02:28:15 Obesity 425232241 Active 2023 Other obesity; Note: Date Diagnosed : 10/16/2023 2:02 PM (E66.8) Not Available [facility] 02:28:22 Chronic sinusitis 55994176 Active 2024 JESUS MANCINI MD [address] [facility],[place] [address], [place], [phone] , [place] - [facility] 16:25:36 Allergic rhinitis 92345800 Active 2024 JESUS MANCINI MD [address] [facility],[place] [address], [place], [phone] , [place] [facility] 16:25:48 Change in voice 452574984 Active 2024 JESUS MANCINI MD [address] [place] [address], [place], [phone] , [place] [facility] 16:26:02 Problem Notes None recorded. Procedures Surgical History Date Name Laterality Status Provider Name and Address Organization Details Recorded Time 05/17/20 Fiberoptic Laryngoscopy (Comprehensive) completed JESUS MA MD [address] [place] [address],[place] [address], [place], [phone], [place] - [facility] 05/17/2025 16:40:16 hysterectomy completed Jeannette Piper [place] - [facility] 05/17/2025 15:54:59 oophorectomy completed Jeannette Piper [place] - [facility] 05/17/2025 15:55:12 Imaging Results None recorded. Procedure Notes None recorded. Medical Equipment None Reported. Allergies Allergen ID Allergen Name Allergen Category Reaction Reaction Severity Criticality Documentation Date Start Date Code Code System Note Provider Name and Address Organization Details Recorded Time 32812 latex environme nt,medica tion other Not available Not available 12/08/2023 11353 91 RxNorm React ion: Unkno wn; Not Available [facility] 00:54:51 Medications Name Sig Start Date Stop Date Status Note LastModified by Organization Details LastModified Time azelastin e 137 mcg (0.1 %) nasal spray [place] 2 spray into both nostrils twice a day as directed 2022 active Medicati on ID: [id number] D uration Value: 30 Brand Name: azelasti [...] Relief 50 mcg/actua tion nasal spray,fabián pension [place] 2 spray once a day 2022 active Medicati on ID: [id number] D uration Value: 30 Brand Name: Flonase Allergy Relief S end Method: E-Prescr ibed Sub s Allowed: subs OK Medic ationGen ericName : Flonase Allergy Relief Not Available Not Available Not Available Flonase Allergy Relief 05/17 completed Medicati on ID: [id number] B rand Name: Flonase Allergy Relief S [...] ICD10 Code Diagnosis IMO Codes Diagnosis Note [id number] JESUS MANCINI MD [facility] [address] [address] 05/17/2025 15:38:11 05/18/2025 13:14:20 Chronic sinusitis [id number] J32.8 59940 Deviated nasal septum 12 3714891 J34.2 353782 Allergic rhinitis 817330 04 J30.89 6070082 Use Flonase 2 spray each nostril BID and Afrin at night for 3 days Change in voice 17213716 5 R49.9 41453 Health Concerns Section Related Observation LastModified by Organization Detai ls LastModified Time None Recorded Concern Status LastModified by Organization Details LastModified Time None Recorded Payers Encounter Date Sequence Insurance Name Policy Number Policy Bautista Covered Member ID Bautista Member ID Guarantor Name 05/17/2025 1 [employer] [place] [id number] Radha Watson Md [id number] Radha Watson MD Notes Date Note [...] a known LATEX allergy. JESUS [place] MD [address] [place] [address], [phone], [facility] - [facility] 05/17/2025 16:46:39 OBGyn Episode No OBEpisode recorded.
[2025-06-23] MEDS: iohexoL 350 MG/ML 100 ML INFUS..BTL 85 ML IV (15:42)
[2025-06-26 12:14] LABS: Creatinine POC 0.9 mg/dL (0.5-1.4); GFR POC > 60
== END 2025-06-23 15:04 | disposition home or self-care (01) ==
LOC: HO.CT 15:03
PROVIDERS: PCP Internal Medicine; Visit Provider Otolaryngology
DX: J32.8 Other chronic sinusitis (principal)
CPT/HCPCS: 70487; 82565; Q9967

== ENCOUNTER → 2025-06-23 15:16 | Outpatient (BNV) | payer OTHER, SELFPAY | PROVIDERS: PCP Internal Medicine; Visit Provider Radiology Diagnostic Radiology | DX: J32.9 Chronic sinusitis, unspecified (principal); J34.2 Deviated nasal septum | CPT/HCPCS: 70487 ==